=== PATIENT | male | born 1955 | race Caucasian/White ===

== ENCOUNTER 2020-04-24 01:04 | Inpatient (IN) | payer OTHER ==
[~2020-04-24] VITALS: Ht 177.8 cm; Wt 72.6 kg
[2020-04-24] MEDS ORDERED: DOCU-141 PO (01:25)
[2020-04-24] MEDS ORDERED: OLAN10TA3 PO (01:25)
[2020-04-24] MEDS ORDERED: ENOX40DI SQ (01:25)
[2020-04-24] MEDS ORDERED: MULT-213 PO (01:25)
[2020-04-24] MEDS ORDERED: NA P133E RC (01:25)
[2020-04-24] MEDS ORDERED: BISA10SU95 RC (01:25)
[2020-04-24] MEDS ORDERED: ONDA4TAB8 PO (01:25)
[2020-04-24] MEDS ORDERED: AMLO10TA59 PO (01:25)
[2020-04-24] MEDS ORDERED: ACET-2154 PO (01:25)
[2020-04-24] MEDS ORDERED: FLUO20TA28 PO (01:25)
[2020-04-24] MEDS ORDERED: MAGN400O6 PO (01:25)
[2020-04-24] MEDS ORDERED: IV NORMAL SALINE 1000 ML BAG IV ONE (01:45)
[2020-04-24] MEDS ORDERED: PANTOPRAZOLE SODIUM 40 MG VIAL IV ONE (01:45)
[2020-04-24 02:01] LABS: BASOPHILS # (AUTO) 0.1 K/uL (0.0-8.0); BASOPHILS % (AUTO) 0.8 % (0.0-2.0); EOSINOPHILS % (AUTO) 0.1 % (0.0-7.0); HEMATOCRIT 43.3 % (36.7-47.1); HEMOGLOBIN 14.7 g/dL (12.5-16.3); LYMPHOCYTES # (AUTO) 1.1 K/uL (20.0-40.0); LYMPHOCYTES % (AUTO) 9.1 % (20.5-51.5); MEAN CORPUSCULAR HEMOGLOBIN 29.6 uug (23.8-33.4); MEAN CORPUSCULAR HGB CONC 34 g/dL (32.5-36.3); MEAN CORPUSCULAR VOLUME 87.4 fL (73.0-96.2); MONOCYTES # (AUTO) 0.8 K/uL (2.0-10.0); MONOCYTES % (AUTO) 6.5 % (0.0-11.0); NEUTROPHILS # (AUTO) 9.8 K/uL (1.8-8.9); NEUTROPHILS % (AUTO) 83.5 % (38.5-71.5); PLATELET COUNT (AUTO) 361 K/uL (152-348); RED BLOOD CELL COUNT(AUTO) 4.96 MIL/uL (4.06-5.63); WHITE BLOOD COUNT (AUTO) 11.8 K/uL (3.6-10.2)
[2020-04-24 02:12] LABS: CREATININE 1.1 mg/dL (0.6-1.3); POTASSIUM 4.1 mmol/L (3.5-5.1)
[2020-04-24 02:18] LABS: BILIRUBIN,DIRECT 0.1 mg/dL (0.0-0.2); BILIRUBIN,TOTAL 0.5 mg/dL (0.2-1.0); TOTAL PROTEIN, SERUM 7.3 g/dL (6.4-8.2)
[2020-04-24] MEDS ORDERED: PANTOPRAZOLE SODIUM 40 MG VIAL ONE ×3 (02:52→20:58)
--- NOTE | 2020-04-24 07:00 | NUR ---
RECIEVED PT IN BED, ON MONITOR, NO SIGN OF DISTRESS. ADMISSION PENDING ON INSURANCE AUTHORIZATION/BED AVAILABILITY.
--- NOTE | 2020-04-24 08:50 | NUR ---
pt had a large soft brown bm in daiper, perineal hygiene provided. stool sent to lab for oc blood
[2020-04-24 09:58] LABS: *OCCULT BLOOD STOOL NEGATIVE (NEGATIVE)
--- NOTE | 2020-04-24 10:28 | NUR ---
checked pt in room couple of times. pt resting, awake, deneis any pain or any complain at this time.
--- NOTE | 2020-04-24 10:50 | NUR ---
DON MENON,POULTRY HUSBANDMAN AT BEDSIDE. PT ADMITTED, TRANSFER TO FLOOR PENDING ON BED [id number],
[2020-04-24] MEDS ORDERED: MAGNESIUM HYDROXIDE 30 ML LIQUID UDC PO PRN (11:30)
[2020-04-24] MEDS ORDERED: ONDANSETRON 4 MG/2 ML VIAL IV PRN (11:30)
[2020-04-24] MEDS ORDERED: ACETAMINOPHEN 325 MG TABLET PO PRN (11:30)
[2020-04-24] MEDS ORDERED: HYDROCODONE/APAP 5-325MG TABLET PO PRN (11:30)
[2020-04-24] MEDS ORDERED: Z GUARD REMEDY PASTE 57 GM TUBE TOP PRN (11:30)
[2020-04-24] MEDS: IV NS 1000 ML 1,000 ML IV PRN (12:15)
[2020-04-24] MEDS: PANTOPRAZOLE SODIUM 40 MG VIAL IV SCH ×2 (13:47→20:58)
--- NOTE | 2020-04-24 16:01 | NUR ---
Dr. baker talking to er md for GI consult.
[2020-04-24] MEDS: DOCUSATE SODIUM 100 MG CAPSULE PO SCH (17:00)
--- NOTE | 2020-04-24 17:00 | NUR ---
py voided in urinal, 400ml urine output
--- NOTE | 2020-04-24 17:26 | NUR ---
John mendezbree in ED - 04/24/20 at 1736 by SCOUT pt in bed resting, with occasional coughs. pt on monitor, on rebreather, sat 99%.
--- NOTE | 2020-04-24 17:33 | NUR ---
pt remains npo per admitting practitioner, Taylor rain.
--- NOTE | 2020-04-24 17:36 | NUR ---
pt in bed, awake, looking at the tv monitor. pt denies any mary/nausea at this point.
[2020-04-24 18:00] LABS: *BILIRUBIN,URIN NEGATIVE (NEGATIVE); *BLOOD, URINE NEGATIVE (NEGATIVE); *CLARITY,URINE CLEAR (CLEAR); *COLOR,URINE YELLOW (YELLOW); *KETONES,URINE NEGATIVE (NEGATIVE); *UROBILINOGEN,URINE 0.2 E.U./dl (NORMAL); LEUKOCYTE ESTERASE ,URINE TRACE (NEGATIVE); NITRITE, URINE NEGATIVE (NEGATIVE); PH,URINE 5.5 (5.0-8.0); UGLUCOSE NEGATIVE (NEGATIVE)
[2020-04-24] MEDS ORDERED: OLANZAPINE 5 MG TABLET ONE (20:58)
[2020-04-24] MEDS ORDERED: OLANZAPINE 5 MG TABLET PO SCH (21:00)
[2020-04-24 21:50] LABS: BACTERIA,URINE FEW /HPF (NONE SEEN); RBC,URINE 0-3 /HPF (0-3); SQUAMOUS EPITHELIAL CELL,UR FEW /HPF (NONE SEEN); WBC,URINE 0-3 /HPF (0-3)
--- NOTE | 2020-04-24 22:27 | NUR ---
TRANSFERED TO 3RD FLOOR MED SURG VIA PATTI
--- NOTE | 2020-04-24 22:30 | NUR ---
Patient received from ER. Safety measures in place, plan of care initiated, patient stable. Will monitor and assess.
[2020-04-24 22:47] VITALS: BP 127/86
[2020-04-25] MEDS: IV NS 1000 ML 1,000 ML IV PRN (00:47)
[2020-04-25 05:49] VITALS: BP 124/82
[2020-04-25 08:07] LABS: BASOPHILS % (AUTO) 0.7 % (0.0-2.0); EOSINOPHILS # (AUTO) 0.2 K/uL (0.0-0.7); EOSINOPHILS % (AUTO) 4.3 % (0.0-7.0); HEMATOCRIT 40.7 % (36.7-47.1); HEMOGLOBIN 13.7 g/dL (12.5-16.3); MEAN CORPUSCULAR HGB CONC 34 g/dL (32.5-36.3); MEAN CORPUSCULAR VOLUME 88.8 fL (73.0-96.2); MONOCYTES # (AUTO) 0.5 K/uL (2.0-10.0); MONOCYTES % (AUTO) 8.6 % (0.0-11.0); NEUTROPHILS # (AUTO) 3.8 K/uL (1.8-8.9); NEUTROPHILS % (AUTO) 68.4 % (38.5-71.5); PLATELET COUNT (AUTO) 245 K/uL (152-348); RED BLOOD CELL COUNT(AUTO) 4.58 MIL/uL (4.06-5.63); WHITE BLOOD COUNT (AUTO) 5.6 K/uL (3.6-10.2)
[2020-04-25 08:17] LABS: CREATININE 0.9 mg/dL (0.6-1.3); PHOSPHOROUS 2.7 mg/dL (2.5-4.9); POTASSIUM 3.6 mmol/L (3.5-5.1)
[2020-04-25] MEDS ORDERED: AMLODIPINE 10 MG TABLET PO SCH (09:00)
[2020-04-25] MEDS ORDERED: MULTIVITAMINS,THERAPEUTIC TABLET PO SCH (09:00)
[2020-04-25] MEDS ORDERED: FLUOXETINE HCL 20 MG CAPSULE PO SCH (09:00)
[2020-04-25 10:01] VITALS: BP 130/90
[2020-04-25] MEDS: PANTOPRAZOLE SODIUM 40 MG VIAL IV SCH (10:58)
[2020-04-25] MEDS: DOCUSATE SODIUM 100 MG CAPSULE PO SCH (10:59)
[2020-04-25] MEDS ORDERED: CEFTRIAXONE 1 G VIAL IV SCH (12:30)
[2020-04-25 12:50] VITALS: BP 113/79
[2020-04-25] MEDS ORDERED: CEFTRIAXONE 1 G in IV DEXTROSE 5% 50 ML IV SCH ×4 (13:00)
[2020-04-25] MEDS ORDERED: PANT40VI PO (13:12)
[2020-04-25 15:58] VITALS: BP 109/83
== END 2020-04-25 18:00 | DRG 253 ==
LOC: ER 01:09 → MEDSURG3 22:13
PROVIDERS: ADMIT Nurse Practitioner Acute Care; ATTEND Nurse Practitioner Acute Care
DX: K92.2 Gastrointestinal hemorrhage, unspecified (principal); I10 Essential (primary) hypertension; R79.89 Other specified abnormal findings of blood chemistry; F32.9 Major depressive disorder, single episode, unspecified; F10.21 Alcohol dependence, in remission; K21.9 Gastro-esophageal reflux disease without esophagitis
CPT/HCPCS: 36415; 70030-TC; 71045; 83690; 83735; 84100; 85025; 85730; 86850; 86900; 86901; 93005; C1758; C9113; G0378; J0696; J7030; J7060